=== PATIENT | male | born 1945 | race Caucasian/White ===

== ENCOUNTER → 2021-08-10 | Outpatient (CLI) | payer MEDICARE, BC ==
--- NOTE | 2021-08-10 11:16 | RAD ---
EXAM: CT CHEST WITHOUT CONTRAST (LDCT LUNG CANCER SCREENING). HISTORY: Risk factors for pulmonary malignancy. Cigarette smoking. TECHNIQUE: CT of the chest was performed without intravenous contrast using a low-dose lung screening protocol. Findings analysis is based on ACR Lung-RADS v1.1. *One or more of the following individual ized dose reduction techniques were utilized for this examination: 1. Automated exposure control. 2. Adjustment of the mA and/or kV according to patient size. 3. Use of iterative reconstruction technique. COMPARISON: None. FINDINGS: The heart is normal in size. There is coronary artery calcification. There is calcified ath erosclerotic plaque involving the aorta and aortic arch great vessels. There is a prominent right par atracheal lymph node measuring 1.4 cm. This is likely physiologic or reactive in etiology. There are few calcified granulomas. There is mild emphysema. There is no pneumothorax or pleural effusion. There is posterior dependent a nd basilar atelectasis. There is suspected mild air trapping. There is a 4 mm nodule along the right major pleural fissure, likely due to a fissural lymph node. There is no acute finding involving the u pper abdomen or osseous structures. There is mild splenomegaly, measuring 13.8 cm. There is a moderat e chronic appearing compression fracture of T5 and there are mild chronic appearing compression fract ures of T3 and T2. IMPRESSION: 1. 4 mm nodule along the right major pleural fissure, likely due to a fissural lymph node. Lung RADS category 2: Follow-up with a CT in 12 months is recommended. 2. Pulmonary emphysema with lower lobe predominant atelectasis and suspected mild air trapping. 3. Multiple chronic appearing thoracic compression fractures. Electronically signed by: Nurys Snow MD (08/10/2021 11:13 AM) [id number]
--- NOTE | 2021-08-10 11:34 | RAD ---
EXAM: Lower extremity arterial Doppler sonogram with ankle-brachial indices (SERINA). HISTORY: Lower 70 claudication. Cigarette smoking. Hypertension. Peripheral vascular disease. TECHNIQUE: Doppler sonographic evaluation of the lower extremities was performed and pressure reading s were assessed. FINDINGS: Right brachial pressure: 156 mmHg Left brachial pressure: 164 mmHg Right ankle pressure (dorsalis pedis artery): 114 mmHg Right ankle pressure (posterior tibial artery): 108 mmHg Right SERINA: 0.7 Left ankle pressure (dorsalis pedis artery): 138 mmHg Left ankle pressure (posterior tibial artery): 160 mmHg Left SERINA: 1.0 IMPRESSION: 1. Decreased right ankle-brachial index consistent with moderate peripheral vascular disease. 2. Normal left ankle-brachial index. Electronically signed by: Nurys Snow MD (08/10/2021 11:31 AM) [id number]
== END ==
LOC: US 09:51
PROVIDERS: ATTEND Family Medicine
DX: Z12.2 Encounter for screening for malignant neoplasm of respiratory organs (principal); J43.9 Emphysema, unspecified; R91.1 Solitary pulmonary nodule; J98.11 Atelectasis; I73.9 Peripheral vascular disease, unspecified; I25.10 Atherosclerotic heart disease of native coronary artery without angina pectoris; I70.0 Atherosclerosis of aorta; R16.1 Splenomegaly, not elsewhere classified; F17.210 Nicotine dependence, cigarettes, uncomplicated
CPT/HCPCS: 71271; 93923